=== PATIENT | male | born 1980 | race Caucasian/White ===

== ENCOUNTER 2016-09-05 14:32 | Emergency (ER) | payer SELFPAY ==
[~2016-09-05] VITALS: Ht 170.2 cm; Wt 105.0 kg
[~2016-09-05 14:32] MED LIST: CIPR500T2 PO; CLEO300C2 PO; CLIN150 PO; LORT7.5T3 PO; NAPR550 PO; OXYC-360 PO; PENI500T PO; PROM6.257 PO; TRAM50 PO; Z.0.NO CURRENT MEDS
[2016-09-05 14:35] VITALS: BP 156/89; PULSE 18; PULSE 84; RESP 15; TEMP 98.2; TEMP 98.4; O2SAT 98
[2016-09-05 14:49] VITALS: BP 142/88; PULSE 96; RESP 16; O2SAT 97
[2016-09-05] MEDS ORDERED: SUBO8MIS SL (14:51)
[2016-09-05] MEDS ORDERED: SODIUM CHLOR 0.9% 1000 ML INJ 1,000 ML IV ONE (15:00)
[2016-09-05] MEDS ORDERED: KETOROLAC TROMETHAMINE 30 MG/ML (IVP) VIAL IV PUSH ONE (15:00)
[2016-09-05] MEDS ORDERED: ONDANSETRON HCL 4 MG/2 ML VIAL IV PUSH ONE (15:00)
[2016-09-05 15:22] LABS: AUTOMATED NEUTROPHIL # 4.8 TH/MM3 (1.8-7.7); BASOPHIL # 0.1 TH/MM3 (0-0.2); BASOPHIL % 0.8 % (0.0-2.0); EOSINOPHIL # 0.2 TH/MM3 (0-0.4); EOSINOPHIL % 2.1 % (0.0-4.0); HEMATOCRIT 45.4 % (39.0-51.0); HEMO FLAGS DIFF FINAL; LYMPH % 34.3 % (9.0-44.0); LYMPHOCYTE # 3.2 TH/MM3 (1.0-4.8); MEAN CELL VOLUME 88.9 FL (80.0-100.0); MEAN CORPUSCULAR HEMOGLOBIN 31.2 PG (27.0-34.0); MEAN CORPUSCULAR HGB CONC 35.1 % (32.0-36.0); MONO % 11.1 % (0.0-8.0); NEUT % 51.7 % (16.0-70.0); PLATELET COUNT 300 TH/MM3 (150-450); RED CELL DISTRIBUTION WIDTH 13.4 % (11.6-17.2); WHITE BLOOD COUNT 9.3 TH/MM3 (4.0-11.0)
[2016-09-05 15:46] LABS: BICARBONATE 26.1 MEQ/L (21.0-32.0)
[2016-09-05 15:57] LABS: INDIRECT BILIRUBIN 0.3 MG/DL (0.0-0.8); TOTAL BILIRUBIN ADULT 0.4 MG/DL (0.2-1.0)
[2016-09-05] MEDS ORDERED: LIDOCAINE VISCOUS 2% SOLN 15 ML UDC PO ONE (16:15)
[2016-09-05] MEDS ORDERED: ALUMINUM/MAGNESIUM/SIMETH 30 ML CUP PO ONE (16:15)
[2016-09-05 16:16] VITALS: BP 145/82; PULSE 87; RESP 16; O2SAT 95
--- NOTE | 2016-09-05 16:28 | RADRPT ---
EXAM DATE/TIME: 09/05/2016 15:44 [place] COMPARISON: No previous studies available for comparison. INDICATIONS : Right upper quadrant pain. MEDICAL HISTORY : Right upper quadrant pain. Substance use. SURGICAL HISTORY : Tonsillectomy. Oral surgery. Cyst removal from right leg. ENCOUNTER: Initial ACUITY: 3 weeks PAIN SCORE: 7/10 LOCATION: Right upper quadrant MEASUREMENTS: LIVER: 20.3 cm length COMMON DUCT: 4 mm RIGHT KIDNEY: 10.5 x 5.9 x 5.0 cm FINDINGS: The liver is slightly echogenic which maybe due to fatty infiltration and or hepatocellular dysfuncti on. The gallbladder is intact without any evidence for gallstones, gallbladder wall thickening, or pe richolecystic fluid. The visualized head of the pancreas, and right kidney appear grossly intact for technique. CONCLUSION: The liver is slightly echogenic which maybe due to fatty infiltration and or hepatoce llular dysfunction. Mari Mahoney MD on September 05, 2016 at 16:26 Board Certified Radiologist. This report was verified electronically.
[2016-09-05] MEDS ORDERED: ZANT150T2 PO (16:52)
--- NOTE | 2016-09-05 16:52 | PD ---
HPI Chief Complaint: Abdominal Pain Time Seen by Provider: 14:49 Travel History International Travel<30 days: No Contact w/Intl Traveler<30days: No Traveled to known affect area: No History of Present Illness HPI Patient is a 35 year old male who comes in complaining of upper abdominal pain radiating to his back for the past 3-4 weeks. He says it does not seem to be related to food. He denies fever or chills. He has not had any vomiting. He says he tried taking Aleve for pain. He denies any urinary symptoms. PFS Past Medical History Medical History: Denies Significant Hx Diminished Hearing: No Influenza Vaccination: No Menopausal: No Past Surgical History Oral Surgery: Yes (TEETH REMOVED) Tonsillectomy: Yes ( A CHILD) Other Surgery: Yes (CYST REMOVED FROM RIGHT LEG) Social History Alcohol Use: No Tobacco Use: Yes (1 PPD) Substance Use: Yes (MARIJUANA (OPIATE ABUSE YEARS AGO)) Allergies-Medications (Allergen,Severity, Reaction): Coded Allergies: Erythromycin (Verified Allergy, Severe, RASH, 09/05/16) Reported Meds & Prescriptions Reported Meds & Active Scripts Active Reported Suboxone Sublingual Film (Buprenorphine-Naloxone Sublingual Film) 8-2 Mg Film 1 Film SL DAILY Unique ID number required: Review of Systems Except as stated in HPI: all other systems reviewed are Neg General / Constitutional: No: Fever, Chills HENT: No: Headaches Cardiovascular: No: Chest Pain or Discomfort Respiratory: No: Shortness of Breath Gastrointestinal: Positive: Nausea, Abdominal Pain, No: Vomiting, Diarrhea Genitourinary: No: Dysuria Musculoskeletal: No: Myalgias, Pain Skin: No Rash, No Change in Pigmentation Neurologic: No: Weakness, Dizziness Physical Exam Narrative GENERAL: Awake and alert, in no acute distress. SKIN: Focused skin assessment warm/dry. HEAD: Atraumatic. Normocephalic. EYES: Pupils equal and round. No scleral icterus. ENT: Mucous membranes pink and moist. NECK: Trachea midline. No JVD. CARDIOVASCULAR: Regular rate and rhythm. No murmur appreciated. RESPIRATORY: No accessory muscle use. Clear to auscultation. Breath sounds equal bilaterally. GASTROINTESTINAL: Abdomen soft, nondistended. Mild tenderness to palpation of the epigastric area and right upper quadrant. No rebound or guarding. MUSCULOSKELETAL: No obvious deformities. No clubbing. No cyanosis. No edema. NEUROLOGICAL: Awake and alert. No obvious cranial nerve deficits. Motor grossly within normal limits. Normal speech. PSYCHIATRIC: Appropriate mood and affect; insight and judgment normal. Data Data Last Documented VS Vital Signs Date Time Temp Pulse Resp B/P Pulse Ox O2 Delivery O2 Flow Rate FiO2 09/05/16 16:16 87 16 145/82 95 Room Air 09/05/16 14:35 98.4 Orders Complete Blood Count With Diff (09/05/16 15:00) Basic Metabolic Panel (Bmp) (09/05/16 15:00) Hepatic Functional Panel (09/05/16 15:00) Lipase (09/05/16 15:00) Sodium Chlor 0.9% 1000 Ml Inj (Ns 1000 M (09/05/16 15:00) Ketorolac Inj (Toradol Inj) (09/05/16 15:00) Ondansetron Inj (Zofran Inj) (09/05/16 15:00) Us Abdomen Gallbladder (09/05/16 ) Al-Mag Hy-Si 40-40-4 Mg/Ml Liq (Mag-Al P (09/05/16 16:15) Lidocaine 2% Viscous (Xylocaine 2% Visco (09/05/16 16:15) Labs Laboratory Tests Test 09/05/16 15:05 White Blood Count 9.3 TH/MM3 Red Blood Count 5.10 MIL/MM3 Hemoglobin 15.9 GM/DL Hematocrit 45.4 % Mean Corpuscular Volume 88.9 FL Mean Corpuscular Hemoglobin 31.2 PG Mean Corpuscular Hemoglobin 35.1 % Concent Red Cell Distribution Width 13.4 % Platelet Count 300 TH/MM3 Mean Platelet Volume 7.8 FL Neutrophils (%) (Auto) 51.7 % Lymphocytes (%) (Auto) 34.3 % Monocytes (%) (Auto) 11.1 % Eosinophils (%) (Auto) 2.1 % Basophils (%) (Auto) 0.8 % Neutrophils # (Auto) 4.8 TH/MM3 Lymphocytes # (Auto) 3.2 TH/MM3 Monocytes # (Auto) 1.0 TH/MM3 Eosinophils # (Auto) 0.2 TH/MM3 Basophils # (Auto) 0.1 TH/MM3 CBC Comment DIFF FINAL Differential Comment Sodium Level 137 MEQ/L Potassium Level 4.0 MEQ/L Chloride Level 102 MEQ/L Carbon Dioxide Level 26.1 MEQ/L Anion Gap 9 MEQ/L Blood Urea Nitrogen 7 MG/DL Creatinine 0.85 MG/DL Estimat Glomerular Filtration 103 ML/MIN Rate Random Glucose 90 MG/DL Calcium Level 9.2 MG/DL Total Bilirubin 0.4 MG/DL Direct Bilirubin 0.1 MG/DL Indirect Bilirubin 0.3 MG/DL Aspartate Amino Transf 22 U/L (AST/SGOT) Alanine Aminotransferase 34 U/L (ALT/SGPT) Alkaline Phosphatase 99 U/L Total Protein 7.8 GM/DL Albumin 3.9 GM/DL Lipase 69 U/L [facility] Medical Decision Making Medical Screen Exam Complete: Yes Emergency Medical Condition: Yes Medical Record Reviewed: Yes Differential Diagnosis Cholecystitis versus cholelithiasis versus pancreatitis versus GERD Narrative Course Patient is a 35-year-old male who comes in complaining of abdominal pain that radiates to his back. Exam shows some mild epigastric/right upper quadrant tenderness. IV established, labs sent. Labs show no acute abnormalities. Right upper quadrant ultrasound performed shows no acute abnormalities. The fluids, Zofran, Toradol. Social followed by GI cocktail. He reports resolution of the symptoms. Patient advised this is possibly acid buildup in his stomach. Advised to avoid spicy foods, alcohol, tobacco. Advised to take Zantac as needed for symptoms. Advised follow-up with his doctor. Advised to return to the ED as needed for any worsening symptoms. Diagnosis Primary Impression: Abdominal pain Qualified Code: R10.13 - Epigastric pain Patient Instructions: Gastroesophageal Reflux Disease (ED), General Instructions Additional Instructions: Avoid spicy foods, alcohol, tobacco. Take Zantac for acid reflux. Follow up with your doctor. Return to the ED as needed for any worsening symptoms. Scripts Ranitidine (Zantac)150 Mg Unv832 Mg PO BID #60 TAB Ref 0 Prov:Luisa Melo MD 09/05/16 Disposition: 01 DISCHARGE HOME Condition: Stable Luisa Melo MD Sep 05, 2016 16:52
== END 2016-09-05 17:06 | disposition home or self-care (01) ==
LOC: NEPD 14:32
DX: R10.13 Epigastric pain (principal); M54.9 Dorsalgia, unspecified; F17.200 Nicotine dependence, unspecified, uncomplicated
CPT/HCPCS: 76705; 80048; 80076; 83690; 85025; 96361; 96374; 96375; 99284; J1885; J2405; J7030